=== PATIENT | male | born 1990 | race Two or more races ===

== ENCOUNTER 2018-03-26 08:57 | Emergency (ER) | payer OTHER ==
[2018-03-26 09:16] VITALS: BP 126/83; PULSE 79; TEMP 97.9; BMI 25.0
--- NOTE | 2018-03-26 09:38 | PDOC ---
History of Present Illness - General Chief Complaint: Eye Problem Stated Complaint: EYE PROBLEM Time Seen by Provider: 03/26/18 09:19 History Source: Patient Exam Limitations: No Limitations - History of Present Illness Initial Comments: 03/26/18 09:35 27 yr male with left eye irritation while driving, may have gotten something in the eye rubbed it now has burning sensation and photosensitivity. no allergies, tetanus UTD. Past History - Past Medical History Allergies/Adverse Reactions: Allergies Allergy/AdvReac Type Severity Reaction Status Date / Time No Known Allergies Allergy Verified 03/26/18 09:03 COPD: No - Suicide/Smoking/Psychosocial Hx Smoking History: Never smoked Have you smoked in the past 12 months: No Information on smoking cessation initiated: No Hx Alcohol Use: No Drug/Substance Use Hx: No Substance Use Type: None *Physical Exam - Vital Signs Last Vital Signs Temp Pulse Resp BP Pulse Ox 97.9 F 79 18 126/83 100 03/26/18 09:04 03/26/18 09:04 03/26/18 09:04 03/26/18 09:04 03/26/18 09:04 *DC/Admit/Observation/Transfer Diagnosis at time of Disposition: Corneal abrasion, left Qualifiers: Encounter type: initial encounter Qualified Code(s): S05.02XA - Injury of conjunctiva and corneal abrasion without foreign body, left eye, initial encounter - Discharge Dispostion Disposition: HOME Condition at time of disposition: Good - Referrals Referrals: Bertin Payan MD [Staff Physician] - Tato Pepper MD [Staff Physician] - - Patient Instructions Additional Instructions: follow with the eye doctor tomorrow apply 1 drop to left eye every 4hrs while awake for 5 days use sunglasses while outside take motrin or tylenol for any pain - Post Discharge Activity
[2018-03-26] MEDS ORDERED: TOBRAMYCIN 0.3% OPHTH SOLN 5 ML BOTTLE ONE (09:39)
[2018-03-26] MEDS ORDERED: TOBRA 0.3%/DEXAMETH 0.1% OPHTHALMIC SUSP 2.5 ML BTL OS SCH (10:00)
== END 2018-03-26 09:44 | disposition home or self-care (01) ==
LOC: JERFT 08:57
DX: S05.02XA Injury of conjunctiva and corneal abrasion without foreign body, left eye, initial encounter (principal); X58.XXXA Exposure to other specified factors, initial encounter; Y93.89 Activity, other specified; Y92.89 Other specified places as the place of occurrence of the external cause; Y99.8 Other external cause status
CPT/HCPCS: 99281-25

== ENCOUNTER 2023-10-05 18:31 | Emergency (ER) | payer OTHER ==
[2023-10-05 18:42] VITALS: RESP 18; BMI 25.8
[2023-10-05] MEDS ORDERED: ACETAMINOPHEN 1000 MG/100 ML BAG IVPB ONE (19:51)
[2023-10-05] MEDS ORDERED: FAMOTIDINE 20 MG/50 ML IVPB 20 MG/50 ML MG IVPB ONE ×2 (19:51→20:13)
[2023-10-05] MEDS ORDERED: MAG HYDROX/AL HYDROX/SIMETH 30 ML UNIT-DOSE CUP PO ONE (19:51)
[2023-10-05] MEDS ORDERED: ACETAMINOPHEN INJECTION 100 ML IVPB ONE (20:12)
[2023-10-05] MEDS ORDERED: MAG HYDROX/AL HYDROX/SIMETH 30 ML UNIT-DOSE CUP ONE (20:13)
[2023-10-05 20:30] LABS: BASO % 0.2 % (0-2.0); EOS % 0.6 % (0-4.5); HEMATOCRIT 43.6 % (35.4-49); HEMOGLOBIN 14.8 GM/dL (11.7-16.9); LYMPH % 13.9 % (8-40); MCHC 33.9 g/dl (32.0-35.9); MEAN CELL VOLUME 85.7 fl (80-96); MEAN PLT VOLUME 9.1 fl (7.5-11.1); MONO % 4.8 % (3.8-10.2); NEUT % 80.5 % (42.8-82.8); PLATELET COUNT 248 10^3/uL (134-434); RBC 5.09 M/mm3 (4.00-5.60); WHITE BLOOD COUNT 9.2 K/mm3 (4.0-10.0)
[2023-10-05 20:45] LABS: POTASSIUM 4.3 mmol/L (3.5-5.1)
[2023-10-05 20:47] LABS: CALCIUM 9.2 mg/dL (8.5-10.1)
[2023-10-05 20:48] LABS: BLOOD UREA NITROGEN 13.2 mg/dL (7-18); INR 1.03 (0.83-1.09); MAGNESIUM 2.2 mg/dL (1.8-2.4); PROTHROMBIN TIME (PATIENT) 11.9 SEC (9.7-13.0)
[2023-10-05 20:50] LABS: ACTIVATED PTT 33.6 SECONDS (25.2-36.5)
[2023-10-05 20:51] LABS: CREATININE 1.3 mg/dL (0.55-1.3)
[2023-10-05 20:53] LABS: BILIRUBIN,TOTAL 0.3 mg/dL (0.2-1); TOT PROT 7.7 g/dl (6.4-8.2)
[2023-10-05 21:26] VITALS: BP 120/78; PULSE 71; TEMP 98.2
== END 2023-10-05 21:55 | disposition home or self-care (01) ==
LOC: JER 18:31
PROC: 3E033GC Introduction of Other Therapeutic Substance into Peripheral Vein, Percutaneous Approach (ICD-10-PCS; principal; 2023-10-05)
PROC: 3E033NZ Introduction of Analgesics, Hypnotics, Sedatives into Peripheral Vein, Percutaneous Approach (ICD-10-PCS; 2023-10-05)
DX: R55 Syncope and collapse (principal); K92.1 Melena; R10.9 Unspecified abdominal pain; R42 Dizziness and giddiness; R53.1 Weakness; R11.0 Nausea; R61 Generalized hyperhidrosis
CPT/HCPCS: 36415; 71045-TC-FY; 80053; 83690; 83735; 84484; 85025; 85610; 85730; 86850; 86900; 86901; 93005; 93010; 99285-25

== ENCOUNTER 2023-10-06 15:03 | Emergency (ER) | payer OTHER ==
[2023-10-06 15:09] VITALS: BP 141/80; PULSE 77; RESP 20; TEMP 98; BMI 25.8
[2023-10-06 17:21] LABS: BASO % 0.3 % (0-2.0); EOS % 0.7 % (0-4.5); HEMATOCRIT 42.1 % (35.4-49); HEMOGLOBIN 14.6 GM/dL (11.7-16.9); LYMPH % 14.2 % (8-40); MCH 29.3 pg (25.7-33.7); MCHC 34.6 g/dl (32.0-35.9); MEAN CELL VOLUME 84.7 fl (80-96); MEAN PLT VOLUME 9.3 fl (7.5-11.1); MONO % 9.6 % (3.8-10.2); NEUT % 75.2 % (42.8-82.8); PLATELET COUNT 260 10^3/uL (134-434); RBC 4.96 M/mm3 (4.00-5.60); RDW 13.6 % (11.9-15.9); WHITE BLOOD COUNT 11.3 K/mm3 (4.0-10.0)
[2023-10-06 17:45] LABS: CALCIUM 9.6 mg/dL (8.5-10.1)
[2023-10-06 17:46] LABS: ALBUMIN 4.1 g/dl (3.4-5.0); BLOOD UREA NITROGEN 8.2 mg/dL (7-18)
[2023-10-06 17:49] LABS: CREATININE 1.1 mg/dL (0.55-1.3)
[2023-10-06 17:51] LABS: BILIRUBIN,TOTAL 0.4 mg/dL (0.2-1)
[2023-10-06] MEDS ORDERED: ONDANSETRON 4 MG/2 ML VIAL IVPUSH ONE (18:15)
[2023-10-06 18:18] LABS: EPI CELLS 5 /uL (0-25.1); HYALINE CASTS 0 /uL (0-3.1); URINE APPEARANCE CLEAR; URINE BACTERIA 0 /uL (0-1359); URINE BILIRUBIN NEGATIVE (NEGATIVE); URINE COLOR YELLOW; URINE GLUCOSE (UA) NEGATIVE (NEGATIVE); URINE KETONE NEGATIVE (NEGATIVE); URINE LEUK ESTERASE TRACE (NEGATIVE); URINE NITRITE NEGATIVE (NEGATIVE); URINE PROTEIN NEGATIVE (NEGATIVE); URINE RBC 12 /uL (0-23.9); URINE UROBILINOGEN 0.2 mg/dL (0.2-1.0); URINE WBC 84 /uL (0-25.8)
[2023-10-06] MEDS ORDERED: ONDANSETRON 4 MG/2 ML VIAL ONE (18:27)
== END 2023-10-06 19:10 | disposition home or self-care (01) ==
LOC: JER 15:03
PROC: 3E033GC Introduction of Other Therapeutic Substance into Peripheral Vein, Percutaneous Approach (ICD-10-PCS; principal; 2023-10-06)
DX: K62.5 Hemorrhage of anus and rectum (principal); R42 Dizziness and giddiness
CPT/HCPCS: 36415; 80053; 81003; 82272; 85025; 86850; 86900; 86901; 87086; 99284-25

== ENCOUNTER 2025-05-08 17:42 | Emergency (ER) | payer OTHER ==
[2025-05-08 17:48] VITALS: BP 116/73; PULSE 69; RESP 20; TEMP 97.9; BMI 24.0
[2025-05-08 18:18] LABS: ABSOLUTE IMMATURE GRANULOCYTES 0.01 x10^3/uL (0.0-0.031); BASOPHILS # 0.04 x10^3/uL (0.01-0.08); EOSINOPHIL % 2.9 % (0.8-7.0); EOSINOPHILS # 0.16 x10^3/uL (0.04-0.54); MCHC 31.8 g/dl (32.3-36.5); MEAN CELL VOLUME 89.9 fl (79.0-92.2); MEAN PLT VOLUME 10.8 fl (9.4-12.4); MONOCYTE # 0.55 x10^3/uL (0.30-0.82); MONOCYTE % 10.0 % (5.3-12.2); RDW 13.1 % (12.0-15.6)
[2025-05-08 18:43] LABS: GLUCOSE,RANDOM 101.0 mg/dL (74-106)
[2025-05-08 18:44] LABS: TOT PROT 8.2 g/dl (6.4-8.2)
[2025-05-08 18:45] LABS: CO2 27.0 mmol/L (21-32)
[2025-05-08 18:46] LABS: ALK PHOS 46.0 U/L (40-150)
[2025-05-08 18:49] LABS: CREATININE 1.21 mg/dL (0.55-1.3); SGOT/AST 22.0 U/L (5-34); SGPT/ALT 21.0 U/L (0-55)
[2025-05-08 19:10] LABS: HCV DIAGNOSTIC IN-HOUSE W/RFLX NON-REACTIVE (NONREACTIVE); HIV INTERPRETATION NEGATIVE (NEGATIVE)
[2025-05-08] MEDS ORDERED: KETOROLAC TROMETHAMINE 30 MG/1 ML VIAL ONE (19:14)
[2025-05-08] MEDS: KETOROLAC TROMETHAMINE 30 MG/1 ML VIAL IVPUSH ONE (19:16)
[2025-05-08] MEDS ORDERED: GABAPENTIN 300 MG CAPSULE ONE (19:33)
[2025-05-08] MEDS ORDERED: valACYclovir HCL 500 MG TABLET (FP) ONE (19:33)
[2025-05-08] MEDS: GABAPENTIN 300 MG CAPSULE PO ONE (19:38)
[2025-05-08] MEDS: valACYclovir HCL 500 MG TABLET (FP) PO ONE (19:38)
== END 2025-05-08 19:42 | disposition home or self-care (01) ==
LOC: JER 17:42
PROC: 3E0333Z Introduction of Anti-inflammatory into Peripheral Vein, Percutaneous Approach (ICD-10-PCS; principal; 2025-05-08)
DX: M54.9 Dorsalgia, unspecified (principal); B02.31 Zoster conjunctivitis
CPT/HCPCS: 36415; 71046-TC-FY; 80053; 82150; 83690; 84484; 85025; 86803; 87252; 87389; 93005; 93010; 99285-25